=== PATIENT | female | born 1965 | race Caucasian/White ===

== ENCOUNTER 2022-10-06 15:52 | Emergency (ER) | payer OTHER, SELFPAY ==
[2022-10-06] MEDS ORDERED: Ibuprofen 800 MG TAB ONE (16:52)
== END 2022-10-06 17:22 | disposition home or self-care (01) ==
LOC: MADERS 15:52
DX: M25.512 Pain in left shoulder (principal); L30.9 Dermatitis, unspecified; K21.9 Gastro-esophageal reflux disease without esophagitis